=== PATIENT | female | born 2005 | race Two or more races ===

== ENCOUNTER 2024-06-13 07:33 | Emergency (ER) | payer MEDICAID, OTHER ==
[~2024-06-13] VITALS: Ht 157.5 cm; Wt 68.6 kg
[2024-06-13 08:20] LABS: Urine Bacteria None Seen /hpf (None Seen)
--- NOTE | 2024-06-13 08:22 | ED.PDOC ---
General HPI Comments This is a 18-year-old female that comes in with dysuria for approximately 3 days some lower abdominal pain frequency and urgency. She states it started about 2 days ago she thought it was nothing symptoms have progressively gotten worse. No fever or chills. Chief Complaint: Urinary Time Seen by MD: 08:18 Primary Care Provider: UNKNOWN Reviewed notes: Nurses Notes, Medications, Allergies Allergies: Coded Allergies: NO KNOWN ALLERGIES (Unverified , 06/13/24) Information Source: Patient Mode of Arrival: Ambulatory Past Medical History PAST MEDICAL HISTORY: Denies Surgical History: Denies all surgeries Social History Smoker: Non-Smoker Alcohol: Denies ETOH Use Drugs: Denies Drug Use Lives In: Home Gastrointestinal: reports: abdominal pain Genitourinary: reports: burning, dysuria, frequency, urgency Physical Exam General Appearance: No Apparent Distress HEENT: Normal ENT Inspection, PERRL/EOMI, Pharynx Normal, TMs Normal Neck: Non-Tender, Normal Inspection, Supple Respiratory: No Respiratory Distress, Normal Breath Sounds Cardiovascular: Regular Rate/Rhythm Breast Exam: Deferred Gastrointestinal: Normal Bowel Sounds, Soft, Suprapubic Genitalia: Deferred Pelvic: Deferred Rectal: Deferred Extremities: Normal capillary refill, Normal range of motion Neurologic: Alert, No Motor Deficits, Normal Affect, Normal Mood Cerebellar Function: NOT DONE Reflexes: NOT DONE Skin: Dry, Normal Color, Warm Lymphatic: No Adenopathy Was a procedure done? Was a procedure done?: No Differential Diagnosis Kidney stone (Female): Pyelonephritis, Urolithiasis X-Ray, Labs, Meds, VS Vital Signs Date Time Temp Pulse Resp B/P (MAP) Pulse Ox O2 Delivery O2 Flow Rate FiO2 06/13/24 08:43 97.4 78 16 114/77 (89) 98 97.4 06/13/24 08:43 78 16 98 Room Air 06/13/24 07:44 97.4 78 16 114/77 (89) 98 97.4 Lab Test 06/13/24 08:19 Range/Units Urine Color Yellow Yellow Urine Clarity Turbid H Clear Urine pH 6.0 5.0-9.0 Urine Specific [place] 1.021 1.001-1.035 Urine Protein Negative Negative Urine Ketones 1+ H Negative Urine Blood Negative Negative /uL Urine Nitrite Negative Negative Urine Bilirubin Negative Negative Urine Urobilinogen Normal Negative mg/dL Urine Leukocyte Esterase 2+ Negative /uL Urine RBC 3 0 - 4 /hpf Urine Microscopic WBC 7 H 0-5 /HPF Urine Squamous Epithelial Cells Mod <5 /hpf Urine Bacteria None seen None Seen /hpf Urine Mucus Few None Seen Urine Glucose Normal Normal mg/dL X-Ray, Labs, Meds, VS Comment Patient seen and examined by me. Patient does have urinary symptoms for the last 3 days progressively getting worse. We are pending her urinalysis for treatment. Urinalysis house is does show that she has an infection. I will start the patient on Bactrim DS 1 p.o. b.i.d. for 7 days. I have instructed her to drink lots of liquids. Finish all the medications as directed void before and after sexual relations and use the bathroom as needed when she has to go. Time of 1ST Reevaluation: 08:57 Reevaluation 1ST: Improved Patient Education/Counseling: Diagnosis, Treatment, Prognosis, Need For Follow Up Family Education/Counseling: No Family Present Departure 1 Departure Time of Disposition: 08:58 Impression: Primary Impression: UTI (urinary tract infection) Disposition: 01 HOME / SELF CARE / HOMELESS Condition: Good Additional Instructions: Finish antibiotics as directed Drink lots of liquids Make sure you use the bathroom when you feel like you need to go Urinate before and after any sexual relations e-Prescriptions Sulfamethoxazole W/Trimethopri (Bactrim Ds Tablet) 1 Tab Tb 1 TAB PO BID for 7 Days, #14 TAB Prov: YADIEL LIND 06/13/24 Discharged With: Self Critical Care Note Critical Care Time?: No Stability Stability form required: No YADIEL LIND Jun 13, 2024 08:22
[2024-06-13 08:42] LABS: Urine Blood Negative /uL (Negative); Urine Clarity Turbid (Clear); Urine Color Yellow (Yellow); Urine Mucus FEW (None Seen); Urine Protein, UAD Negative (Negative); Urine Specific Gravity 1.021 (1.001-1.035); Urine Squamous Epithelial Cell MOD /hpf (<5); Urine Urobilinogen Normal (Negative); Urine WBC 7 /HPF (0-5)
[2024-06-13 08:43] VITALS: BP 114/77; PULSE 78; RESP 16; TEMP 97.4; O2SAT 98
[2024-06-13] MEDS ORDERED: BACDST PO (09:00)
== END 2024-06-13 09:01 | disposition home or self-care (01) ==
LOC: ER 07:33
DX: N39.0 Urinary tract infection, site not specified (principal)
CPT/HCPCS: 81001